=== PATIENT | female | born 1950 | race Caucasian/White ===

== ENCOUNTER 2024-01-20 10:53 | Outpatient (OUT) | payer MEDICARE, SELFPAY ==
--- NOTE | 2024-01-20 10:56 | MM_ITS ---
Patient Name: MICHELLE MELVIN MR#: [id number] : 1950 Exam Date: 01/20/2024 Ordering Doctor: DR ISAURA BRYANT M.D. RADIOLOGY REPORT PROCEDURE: MM TOMOSYNTHESIS SCREENING BI COMPARISON: MG MAMM SCREEN 3D [place] CAD, 01/18/2023. MG MAMM SCREEN 3D [place] CAD, 07/30/2021. MG MAMM SCREEN [place] W CAD, 06/12/2020. MG MAMM [place] SCRN W CAD DIG, 07/23/2013. INDICATIONS: screening Calculator Name NCI Breast Cancer Risk Assessment Tool 5 Year Breast Cancer Risk 1.90% Lifetime Breast Cancer Risk 4.80% Personal Breast Cancer No Personal Ovarian Cancer No Treatments None Family Cancers Aunt-maternal with breast cancer at age ~75; Mother with ovarian cancer at age 83; Father with prostate cancer at age ~75. LOCATION: [facility] BREAST COMPOSITION: Scattered areas fibroglandular density. FINDINGS: DIAGNOSTIC CATEGORY 1--NEGATIVE. RIGHT BREAST: No significant suspicious finding. No significant change has occurred. LEFT BREAST: No significant suspicious finding. No significant change has occurred. RECOMMENDATIONS: ROUTINE MAMMOGRAM AND CLINICAL EVALUATION IN 12 MONTHS. PLEASE NOTE: A NORMAL MAMMOGRAM DOES NOT EXCLUDE THE POSSIBILITY OF BREAST CANCER. A CLINICALLY SUSPICIOUS PALPABLE LUMP SHOULD BE BIOPSIED. Dictated by: Toni Covarrubias M.D. on 01/20/2024 at 15:19 Approved by: Toni Covarrubias M.D. on 01/20/2024 at 15:21
== END 2024-01-20 10:54 | disposition home or self-care (01) ==
LOC: MAMMO 10:54
PROVIDERS: PCP Family Medicine; Visit Provider Family Medicine
DX: Z12.31 Encounter for screening mammogram for malignant neoplasm of breast (principal); Z80.3 Family history of malignant neoplasm of breast; Z80.41 Family history of malignant neoplasm of ovary; Z80.42 Family history of malignant neoplasm of prostate
CPT/HCPCS: 77063; 77067

== ENCOUNTER 2024-06-30 19:51 | Emergency (ER) | payer MEDICARE, SELFPAY ==
[2024-06-30 20:05] VITALS: BP 186/88; PULSE 80; TEMP 37.2; O2SAT 93; BMI 35.2
--- OUTSIDE RECORDS SUMMARY | 2024-06-30 20:26 | XMS_ITS | CCD ---
Author Organization [facility] Care Team Providers Care Jig Builder Helper Name Role Phone Kamille Pichardo Unavailable MD Ivonne Bryant Primary Care Provider DIPIKA Pettit Attending Provider MANNY, DR DELAROSA Primary Care Unavailable MANNY, DR DELAROSA Consulting Unavailable MANNY, DR DELAROSA Attending Unavailable MANNY, DR DELAROSA Admitting Unavailable [place]THB[place]OUGH, DR LAZARA Wellington Consulting Unavailable Ann Pettit Unavailable MD Ivonne Bryant Primary Care Provider MD Naun Malhotra Attending Provider Naun Malhotra Unavailable MD Ivonne Godoy Primary Care Pr ovider Kalani Chester Attending Unavailable Kalani Chester Attending Unavailable Ivonne Godoy Primary Care Un available Naun Malhotra Admitting Unavailable Naun Malhotra Attending Unavailable Ann Pettit Admitting Unavailable Ann Pettit Attending Unavailable Ivonne Godoy Primary Care Un available Ivonne Godoy Primary Care Un available Naun Malhotra Admitting Unavailable Naun Malhotra Attending Unavailable IVONNE BRYANT Attending Unavailable CLARISSE FRAUSTO Attending Unavailable MARCIAL HERNANDEZ Referring Unavailable IVONNE BRYANT Primary Care Unavailable IVONNE BRYANT Referring Unavailable IVONNE BRYANT Primary Care Unavailable MARCIAL HERNANDEZ Attending Unavailable IVONNE BRYANT Referring Unavailable IVONNE BRYANT Primary Care Unavailable BRIDGETTE CAVANAUGH Attending Unavailable IVONNE BRYANT Referring Unavailable IVONNE BRYANT Primary Care Unavailable MELANIE HUANG Referring Unavailable IVONNE BRYANT Primary Care Unavailable BRIDGETTE CAVANAUGH Referring Unavailable IVONNE BRYANT Primary Care Unavailable Allergies Allergy Classification Reported Allergen(s) Allergy Type Date of Onset Reaction(s) Facility (10 sources) Bee/Wasp/Ant venom Propensity to adverse reactions swelling [facility] Other (15 sources) Clindamycin; Translations: [clindamycin] Drug Allergy 12-22-19 18 hives, Unknown (qualifier value) [facility] (1 source) Penicillins (Antibiotic) Propensity to adverse reactions rash [facility] Other (10 sources) Shellfish Propensity to adverse reactions anaphylaxis [facility] Other (1 source) Sulfonamides (Antibiotic) Propensity to adverse reactions hives [facility] Other (5 sources) Penicillin V Drug Allergy rash [facility] Other (5 sources) sulfaSALAzine Drug Allergy Unknown [facility] Other (1 source) bee venom Drug allergy (disorder) [facility] (1 source) Clindamycin Drug Allergy [facility] (4 sources) Penicillins; Translations: [PENICILLINS] Drug allergy (disorder) 04-05-20 13 [facility] (3 sources) Shellfish; Translations: [shellfish] Drug allergy (disorder) 04-05-20 13 Unknown (qualifier value) [facility] (1 source) Sulfonamides (Antibiotic) Drug allergy (disorder) 04-05-20 13 [facility] (6 sources) Ibuprofen; Translations: [ibuprofen] Drug Allergy hives, Weal (disorder) [facility] (6 sources) metroNIDAZOLE; Translations: [metronidazole] Drug Allergy hives, Eruption of skin (disorder) [facility] (6 sources) Penicillin; Translations: [penicillin] Drug Allergy rash, Unknown (qualifier value) [facility] (4 sources) Substance with sulfonamide structure and antibacterial mechanism of action (substance) Drug allergy Unknown [facility] Other (1 source) Clindamycin Drug Allergy 10-14-20 [facility] (1 source) Ibuprofen Drug Allergy 10-14-20 [facility] (1 source) metroNIDAZOLE Drug Allergy 10-14-20 [facility] (1 source) Penicillins Drug allergy (disorder) 10-14-20 [facility] (4 sources) Shellfish; Translations: [SHELLFISH DERIVED] Drug allergy (disorder) 12-22-19 [facility] (4 sources) Sulfonamides (Antibiotic); Translations: [SULFA (SULFONAMIDE ANTIBIOTICS)] Drug allergy (disorder) 12-22-19 [facility] (4 sources) bee venom protein (honey bee); Translations: [BEE VENOM PROTEIN (HONEY BEE)] Drug allergy (disorder) 12-22-19 [facility] Medications Current Medications Medication Drug Class(es) Dates Sig (Normalized) Sig (Original) ALPRAZolam 0.5 mg oral tablet (4 sources) Benzodiazepine Start: 12-07-2023 take 1 tablet by mouth three times daily as needed for anxiety Xanax 0.5 mg Tab 0.5 mg = 1 tab(s), Oral, TID, PRN for anxiety, Refills(s) 0 Start Date: 12/07/23 Status: Ordered Xanax Active Calcium (1 source) Phosphate Binder, Calcium take 1 tablet by mouth once daily at mealtime calcium carbonate 1500 mg oral tablet (9 sources) take 1 tablet by mouth every twenty-four hours Calcium 600 MG 1 tablet with meals Orally Once a day Active take 1 tablet by richard th every twenty-four hours Calcium 600 MG 1 tablet with meals Orally Once a day Active calcium d-glucarate 500 mg oral capsule (1 source) Start: 12-07-2023 take 1 mg by mouth twice daily calcium d-glucarate 500 mg oral capsule mg cap(s), Oral, BID, Refills(s) 0 Start Date: 12/07/23 Status: Ordered cholecalciferol 0.125 mg oral capsule (6 sources) Vitamin D Vitamin D3 125 M CG (5000 UT) as directed Orally Active Vitamin D3 125 M CG (5000 UT) as directed Orally Active Compression stockings, 30-40mmHg, thigh 30-40mmHg (9 sources) Start: 12-15-[address] ockings, 30-40mmHg, thigh 30-40mmHg externally daily as directed for 90 days Dec, Active Cranberry preparation (4 sources) Non-Standardized Food Allergenic Extract, Non-Standardized Plant Allergenic Extract Start: 12-07-2023 Azo cranberry Refill(s) 0 Start Date: 12/07/23 Status: Ordered Cranberry Active D-Mannose (1 source) Start: 12-07-2023 D-Mannose D-Ma nnose Start Date: 12/07/23 Status: Ordered estradiol 0.1 mg/ml vaginal cream (1 source) Estrogen Start: 12-07-2023 Estrace 0.1 mg /g Cream See Instructions, 42.5 gm, Refill(s) 3, apply pea size amount to urethra/inner vagina 3x/week x 1 month, then 2x/week for maintainence, [employer] [facility] Start Date: 12/07/23 Status: Ordered FLUoxetine (9 sources) Serotonin Reuptake Inhibitor Fluoxetine Active fluticasone furoate 0.05 MG/ACTUAT Dry Powder Inhaler (11 sources) Corticosteroid Start: 12-07-2023 fluticasone fu roate 50 mcg inhalation powder Inhalation, q24hr, Refills(s) 0 Start Date: 12/07/23 Status: Ordered take 1 spray(s) nasal route once daily Flonase 50 MCG/DOSE 1 spray in each nostril Nasally Once a day for 30 day(s) Active take 1 spray(s) nasal route once daily Flonase 50 MCG/DOSE 1 spray in each nostril Nasally Once a day for 30 day(s) Active lisinopril 10 mg oral tablet (11 sources) Angiotensin Converting Enzyme Inhibitor Start: 12-07-2023 take 1 mg by mouth once daily lisinopril 10 mg Tab mg tab(s), Oral, Daily, Refills(s) 0 Start Date: 12/07/23 Status: Ordered take 1 tablet by richard th every twenty-four hours Lisinopril 10 MG 1 tablet By Mouth Daily Active lutein / zeaxanthin (11 sources) Start: 12-07-2023 lutein-zeaxant hin Oral, Daily, Refill(s) 0 Start Date: 12/07/23 Status: Ordered Lutein-Zeaxanthi n 25-5 MG as directed Orally Active Lutein-Zeaxanthi n 25-5 MG as directed Orally Active magnesum (1 source) Start: 12-07-2023 magnesum magne sum Start Date: 12/07/23 Status: Ordered Multivitamin preparation (10 sources) Multivitamin Act wali Omeprazole (11 sources) Proton Pump Inhibitor Start: 12-07-2023 omeprazole Oral, Daily, Refills(s) 0 Start Date: 12/07/23 Status: Ordered take 1 tablet by richard th every twenty-four hours Omeprazole 20 MG 1 tablet Orally Once a day for 14 day(s) Active oxybutynin (7 sources) Cholinergic Muscarinic Antagonist Start: 12-07-2023 oxybutynin Refills(s ) 0 Start Date: 12/07/23 Status: Ordered take 1 tablet by richard th every twelve hours Oxybutynin Chloride 5 MG 1 tablet Orally Twice a day Not-Taking Prosac (1 source) Start: 12-07-2023 Prosac Prosac Start Date: 12/07/23 Status: Ordered red yeast rice (2 sources) Start: 12-07-2023 take 1 mg by mouth o nce daily red yeast rice mg, Oral, Daily, Refills(s) 0 Start Date: 12/07/23 Status: Ordered Red Yeast Rice 6 00 MG Orally Active Red Yeast Rice 600 MG (9 sources) Red Yeast Rice 6 00 MG Orally Active Vitamin D3 (1 source) Start: 12-07-2023 Vitamin D3 Refills(s) 0 Start Date: 12/07/23 Status: Ordered Vitamin D3 125 MCG (5000 UT) (4 sources) Vitamin D3 125 M CG (5000 UT) as directed Orally Active Zinc (4 sources) take 1 tablet by mouth once daily Zinc 50 MG 1 tablet Orally Once a day Active zinc gluconate 50 mg oral tablet (6 sources) take 1 tablet by mouth every twenty-four hours Zinc 50 MG 1 tablet Orally Once a day Active Completed/Discontinued Medications Medication Drug Class(es) Dates Sig (Normalized) Sig (Original) [id number] 0.3 ml EPINEPHrine 1 mg/ml auto-injector (6 sources) alpha-Adrenergic Agonist, beta-Adrenergic Agonist, Catecholamine Start: 06-25-2013 EpiPen 2-Damián 0.3 MG/0.3ML as directed Injection as needed for . PRN Jun, Not-Taking methylPREDNISolone (8 sources) Corticosteroid Start: 06-25-2013 Depo-Medrol 40 mg Jun, 1 mL nitrofurantoin, macrocrystals 25 mg / nitrofurantoin, monohydrate 75 mg oral capsule (4 sources) Nitrofuran Antibacterial Start: 01-09-2023 take 1 capsule by mouth every twelve hours Macrobid 100 MG 1 cap(s) Orally 2 times a day for 5 day(s) Jan, Not-Taking/PRN phenazopyridine hydrochloride 200 mg oral tablet (4 sources) Start: 01-09-2023 take 1 tablet by mouth every eight hours Pyridium 200 MG 1 tablet after meals Orally Three times a day for 2 day(s) Jan, Not-Taking/PRN triamcinolone acetonide 40 mg/ml injectable suspension (4 sources) Corticosteroid Start: 11-26-2022 Kenalog-40 Nov, 40 mg Problems Active Problems Problem Classification Problem Date Documented Date Episodic/Chronic Esophageal disorders (1 source) Gastroesophageal reflux disease without esophagitis 11-30-2023 Chronic Essential hypertension (1 source) Hypertensive disorder 11-30-2023 Chronic Genitourinary symptoms and ill-defined conditions (1 source) Incontinence 12-07-2023 Chronic Inflammatory diseases of female pelvic organs (1 source) Vaginitis Onset: 05-29-2024 Episodic Menopausal disorders (2 sources) Atrophic vaginitis; Translations: [Postmenopausal atrophic vaginitis] Onset: 12-07-2023 Chronic Other aftercare (1 source) Encounter for other specified aftercare; Translations: [Encounter for other specified aftercare] Onset: 06-27-2024 Episodic Other ear and sense organ disorders (1 source) Hearing loss 11-30-2023 Chronic Other ear and sense organ disorders (1 source) Bilateral tinnitus 11-30-2023 Episodic Other female genital disorders (2 sources) Other specified noninflammatory disorders of vagina; Translations: [Other specified noninflammatory disorders of vagina] Onset: 05-29-2024 Episodic Other inflammatory condition of skin (1 source) Pruritus vulvae; Translations: [Pruritus vulvae] Onset: 06-19-2024 Episodic Other injuries and conditions due to external causes (1 source) Other injury of unspecified body region, initial encounter; Translations: [Other injury of unspecified body region, initial encounter] Onset: 06-27-2024 Episodic Other nervous system disorders (10 sources) Chronic pain; Translations: [Other chronic pain] Chronic Other nervous system disorders (2 sources) Other chronic pain Chronic Other nutritional; endocrine; and metabolic disorders (1 source) Morbid obesity 11-30-2023 Chronic Other screening for suspected conditions (not mental disorders or infectious disease) (4 sources) Encounter for screening mammogram for malignant neoplasm of breast; Translations: [ENC SCR MAMMO MALIG NEOPLASM BREAST] Onset: 01-18-2023 Episodic Residual codes; unclassified (1 source) Sleep apnea 11-30-2023 Chronic Residual codes; unclassified (1 source) Family history of malignant neoplasm of breast; Translations: [FAMILY HX MALIG NEOPLASM OF BREAST] Onset: 01-24-2023 Episodic Residual codes; unclassified (1 source) Family history of malignant neoplasm of ovary; Translations: [FAM HX MALIGNANT NEOPLASM OVARY] Onset: 01-24-2023 Episodic Residual codes; unclassified (1 source) Family history of malignant neoplasm of other organs or systems; Translations: [FAM HX MALIG NEOPLASM OTH ORGN/SYS] Onset: 01-24-2023 Episodic Spondylosis; intervertebral disc disorders; other back problems (20 sources) Degeneration of lumbar intervertebral disc; Translations: [Other intervertebral disc degeneration, lumbar region] Onset: 11-17-2023 Chronic Unclassified (1 source) Vulvar itching Onset: 06-19-2024 Urinary tract infections (3 sources) Urinary tract infection, site not specified; Translations: [Urinary tract infectious disease] Onset: 12-07-2023 Episodic Varicose veins of lower extremity (12 sources) Varicose veins of lower extremity; Translations: [Varicose veins of bilateral lower extremities with pain] Onset: 09-08-2021 Resolved: 12-15-2021 Episodic Past or Other Problems Problem Classification Problem Date Documented Da te Episodic/Chronic Genitourinary symptoms and ill-defined conditions (6 sources) Hematuria, unspecified; Translations: [Nocturia] Onset: 01-09-2023 Episodic Other circulatory disease (1 source) Nevus, non-neoplastic Onset: 09-08-2021 Resolved: 09-08-2021 Episodic Results Test Name Value Interpretation Reference Range Facility SUPERFICIAL WOUND CULTUREon 06-27-2024 Bacteria identified Aer cx Nom (Wound) SPECIMEN NOTES BIOPSY SITE GRAM STAIN 0 to 1 WHITE BLOOD CELLS/LPF 0 SQUAMOUS EPITHELIAL CELLS/LPF FEW GRAM POSITIVE COCCI RARE GRAM NEGATIVE RODS CULTURE RESULTS CULTURE IN PROGRESS Abnormal [facility] Comment on above: Performed By: #### 6 32-0 #### [facility] ([id number]) [address] [place] [address], [address] [place] [address] VAGINITIS PANEL PCRon 2023 VAGINITIS PANEL PCR BACT. VAGINOSIS DNA Not detected (qualifier value) Qualitative results are reported based on detection and quantitation of targeted organism markers which include: Lactobacillus spp. (L. crispatus and L. jensenii), Gardnerella vaginalis, Atopobium vaginae, Bacterial Vaginosis Associated Bacteria-2 (BVAB-2) and Megasphaera-1 ROMANA SPECIES DNA Not detected (qualifier value) Romana species not detected include: C. albicans, C. tropicalis, C. parapsilosis or C. dubliniensis ROMANA KRUSEI DNA Not detected (qualifier value) No Romana krusei detected ROMANA GLABRATA DNA Not detected (qualifier value) No Romana glabrata detected TRICHOMONAS VAG DNA Not detected (qualifier value) No Trichomonas vaginalis detected NOTE BD MAX Vaginal Panel has not been evaluated for patients under 18 years old. Results for these patients should be reviewed and assessed in accordance with clinical presentation to determine patient diagnosis. Normal [facility] Comment on above: Performed By: #### V PPCR #### [facility] ([id number]) [address] [place] [address], [address] [place] [address] Physician Referralon 024 Physician Referral [phone] [id number] Normal [facility] Ambulatory Visit Summaryon 0 12-07-2023 Ambulatory Visit Summary EMMA PALM :1950 Visit Date:12/07/2023 Ambulatory Visit Instructions Your Diagnosis Recurrent UTI Vaginal atrophy Mixed incontinence Nocturia Your Care Team Attending Physician - Kalani Chester MD. This Is Your Medications List estradiol topical (Estrace 0.1 mg/g Cream) Contact prescribing physician if questions or concerns Non-Formulary Medication (D-Mannose) Non-Formulary Medication (Prosac) Non-Formulary Medication (magnesum) alprazolam (Xanax 0.5 mg Tab) calcium saccharate (calcium d-glucarate 500 mg oral capsule) cholecalciferol (Vitamin D3) cranberry (Azo cranberry) fluticasone (fluticasone furoate 50 mcg inhalation powder) lisinopril (lisinopril 10 mg Tab) lutein-zeaxanthin omeprazole oxybutynin red yeast rice [Image Removed: STOP]Stop taking these medications lisinopril Procedures Performed Appendectomy, Tubal ligation. What to do next Scheduled Follow-Up Appointments Tuesday 10:00 AM EDT With: Kalani Chester MD Where: [facility] Patient Educationon 12-07-19 Patient Education Obstetrics and Gynecology Kegel Exercises Kegel exercises can help strengthen your pelvic floor muscles. The pelvic floor is a group of muscles that support your rectum, small intestine, and bladder. In females, pelvic floor muscles also help support the uterus. These muscles help you control the flow of urine and stool (feces). Kegel exercises are painless and simple. They do not require any equipment. Your provider may suggest Kegel exercises to: ? Improve bladder and bowel control. ? Improve sexual response. ? Improve weak pelvic floor muscles after surgery to remove the uterus (hysterectomy) or after , in females. ? Improve weak pelvic floor muscles after prostate gland removal or surgery, in males. Kegel exercises involve squeezing your pelvic floor muscles. These are the same muscles you squeeze when you try to stop the flow of urine or keep from passing gas. The exercises can be done while sitting, standing, or lying down, but it is best to vary your position. Ask your health care provider which exercises are safe for you. Do exercises exactly as told by your health care provider and adjust them as directed. Do not begin these exercises until told by your health care provider. Exercises How to do Kegel exercises: 1. Squeeze your pelvic floor muscles tight. You should feel a tight lift in your rectal area. If you are a female, you should also feel a tightness in your vaginal area. Keep your stomach, buttocks, and legs relaxed. 2. Hold the muscles tight for up to 10 seconds. 3. Breathe normally. 4. Relax your muscles for up to 10 seconds. 5. Repeat as told by your health care provider. Repeat this exercise daily as told by your health care provider. Continue to do this exercise for at least 4?6 weeks, or for as long as told by your health care provider. You may be referred to a physical therapist who can help you learn more about how to do Kegel exercises. Depending on your condition, your health care provider may recommend: ? Varying how long you squeeze your muscles. ? Doing several sets of exercises every day. ? Doing exercises for several weeks. ? Making Kegel exercises a part of your regular exercise routine. This information is not intended to replace advice given to you by your health care provider. Make sure you discuss any questions you have with your health care provider. Document Revised: 03/04/2022 Document Reviewed: 03/04/2022 hybris Patient Education ? 2022 [employer]. Normal [facility] Urology Office/Clinic Noteon 12-07-2023 Urology Office/Clinic Note Chief Complaint Section Leader Screen Printing for hematuria HPI Staff Section Leader Screen Printing referral for UTI w/ hematuria and mixed stress and urge incontinence by Minerva Azeveod Taking OTC AZO and D-Mannose CMP done 09/10/23BUN(16) CREAT(0.72) Urine Culture done 07/09/23 Urine Culture done 09/05/23 When she gets UTI her biggest sx is her hands and knuckles hurt PVR 32 Dysuria: denies Incomplete bladder emptying: not sure if she is Hematuria: denies visible blood Frequency: every couple hours Urgency: sometimes Nocturia: every 2-3 hours, sometimes has to change the pad once nightly Stream: denies hesitation, normal stream Leaking: denies Post void dripping: denies Wearing pads/ Depends: _pad wore all the time, changed at the end of the day Urge incontinence: _yes Stress incontinence: yes Incontinence without Sensory Awareness: _denies Abdominal pain: _denies Flank pain: denies Sexual complaints: denies History of Present Illness Tests reviewed: reviewed UA and External Records including CBC, CMP, multiple urine cultures I have reviewed the previous health record information and history for this patient from External Provider. I have reviewed and verified the staff HPI to be accurate for this encounter. There have been no associated fever, chills, flank pain, or blood in the urine. Review of Systems PHQ Score Initial Depression Screen Score: 0 SCORE ROS - Provider Constitutional: denies weight loss, denies hot flashes. Eyes: denies eye problems. Gastrointestinal: denies nausea, denies vomiting. Cardiovascular: denies chest pain or angina. Integumentary: no dryness Musculoskeletal: denies musculoskeletal symptoms. ENMT: denies otolaryngeal symptoms. Respiratory: no shortness of breath. Heme/Lymph: denies easy bleeding tendency, denies easy bruising tendency. Psychiatric: no confusion, no anxiety. Genitourinary: See HPI. Physical Exam General Appearance: alert , no acute distress, well nourished, well developed female. Head: normocephalic . Eyes: normal orbit and globe. ENMT: normal examination of external ears. Chest: symmetric chest rise, respirations non labored . Cardiovascular: regular rate and rhythm. Abdomen: soft, non distended, no tenderness Genitourinary: bladder nonpalpable, no flank tenderness. Skin: warm, dry, no bruising. Psychiatric: cooperative, affect appropriate for age, normal judgement, euthymic mood. Assessment/Plan 73 year old female here for new patient evaluation of recurrent UTIs. Endorses additional issues below 1. Recurrent UTI (N39.0: Urinary tract infection, site not specified) CMP done 09/10/23 - BUN(16) CREA(0.72) U.Cx 07/28/22 - E.Coli 07/09/23 - K.Pneumoniae 09/05/23 - P.Mirabilis When she gets UTI her biggest sx is her hands and knuckles hurt PVR 32 ml Starting taking OTC AZO and D-Mannose. Pt states that she has not had any infections since. 10% of women over the age of 60 will have recurrent urinary tract infection - 2 or more urinary tract infection in 6 months or 3 or more per year. We discussed multiple etiologies including constipation, voiding dysfunction, incomplete bladder emptying, fecal incontinence, uncontrolled diabetes and vaginal atrophy. I explained the lack of estrogen secondary to menopause causes changes in the vaginal epithelium that can predispose to lower urinary tract symptoms, vaginal discomfort, urinary incontinence, dyspareunia, and recurrent urinary tract infections. Because of these changes to the vaginal tissues the lactobacilli (good bacteria) fail to thrive. The pH of the vagina rises making it easier for harmful bacteria to colonize the vagina. Recommendations discussed: -Start estrace cream. Patient was told to apply a pea-sized amount 3 times weekly at night for 4 weeks and then 2 times per week thereafter, may take up to 3 months for full effect. This has been shown to reduce frequency of UTIs by up to 70%. She was reassured that there is minimal systemic absorption with application of vaginal estrogen cream and most of the benefits will be to the local tissues. She should stop medication and notify us if she feels breast tenderness or has vaginal spotting. - Continue Cranberry extract pills and D-mannose 2 g daily Consider in the future: - Lactobacillus probiotic gel caps orally or vaginally daily x 10 days followed by weekly for 10 weeks as this has been shown to reduce the risk of UTI by half. Patient can consider a weekly booster as well if successful. - Hiprex (methenamine hippurate) or daily antibiotic prophylaxis may be added to the regimen should the patient continue to have urinary tract infections on her current regimen. Urine pH should be 5.5 or lower, may need to start Vitamin C 1-2g QD to QID to acidify urine. - If she continues to demonstrate positive urine cultures with positive urinalysis, a complete workup, including a stone protocol CT and cystoscopy would be reasonable next step. 2. Vaginal atrophy (N95.2: Postmenopa (more content not included)... [facility] [facility] Comment on above: Result Comment: Elec tronically Signed By: Kalani Chester MD\.br\Date and Time Signed: 12/07/23 15:16 EST\.br\Electronically Co-Signed By: Gris Edmondson\.br\Date and Time Co-Signed: 12/07/23 11:36 EST MR lumbar spine wo conon MR lumbar spine wo con [facility] [place] [address] [place] [address] MRI Report Signed Patient: Emma Palm MR#: [id number] : 1950 Acct:[id number] Age/Sex: 73 / F ADM Date: 11/17/23 Loc: MR Room: Type: [facility] Attending Dr: Naun Malhotra MD Copies to: Naun Malhotra MD Ordering Provider: Naun Malhotra MD Date of Service: 11/17/23 MR/MR lumbar spine wo con: [id number] MRI LUMBAR SPINE WITHOUT CONTRAST COMPARISON: 05/13/2020 and plain films 09/19/2023 CLINICAL DATA: Low back pain. History of injections 2 months ago. No injury. Multiecho imaging in the axial and sagittal plane was performed without contrast. There is slight levoscoliotic curvature. There is minor chronic wedge deformity involving the superior endplate of L4. No acute compression fractures or marrow edema are seen. There is still slight anterolisthesis of L4 and L5. There are some degenerative endplate signal changes and spurring. The conus medullaris is normal in caliber, position and signal intensity. No paraspinal soft tissue abnormalities are present. At T12-L1, there is minimal left parasagittal disc bulging with subtle thecal sac effacement. The neural foramen are patent. At L1-2, there is moderate narrowing of the disc space. There is minor annular disc bulging toward the neural foramen. Minor thecal sac effacement is present. There is no significant foraminal stenosis. At L2-3, there is mild disc space narrowing. There is mild annular disc bulging, greater toward the neural foramen and slightly asymmetric extending laterally on the left. There is minimal thecal site effacement. Mild inferior foraminal encroachment is present, greater on the right. At L3-4, the disc is within normal limits for height. Annular disc bulging is present through the neural foramen. There is mild facet and ligamentous hypertrophy. There is continued mild to moderate thecal sac effacement. There is mild to moderate bilateral foraminal impingement, left slightly worse than right. At L4-5, the disc is within normal limits for height. There is minor annular disc bulging. There is prominent bilateral facet disease, left slightly worse than right. There is mild thickening of ligamentum flavum which is also greater on the left. Moderate thecal sac effacement is again seen. There is also moderate narrowing of both neural foramen. At the lumbosacral junction, minor annular disc bulging is present along with some endplate spurring, asymmetric extending laterally on the left. There is mild facet disease. No prominent thecal sac effacement is visualized. There is mild to moderate left foraminal encroachment. The right neural foramen is patent. MR/MR lumbar spine wo con IMPRESSION: CONTINUE DISCOVERTEBRAL DEGENERATIVE CHANGES WITH ASSOCIATED STENOSIS, GREATEST AT L4-5 WHERE THERE IS PROMINENT FACET DISEASE. Impression dictated by: Corrine Lawrence M.D.11/17/2023 7:38 PM Dictation Location: [place] [address] Transcribed By: [facility] 11/17/231937 Dictated By: Corrine Lawrence MD 11/17/231925 Signed By: 11/17/231937 Normal [facility] XR lumbar spine AP/LAT/FLX/E XTon 09-19-2023 XR lumbar spine AP/LAT/FLX/EXT [facility] [place] [address] XRay Report Signed Patient: Emma Palm MR#: [id number] : 1950 Acct:[id number] Age/Sex: 73 / F ADM Date: 09/19/23 Loc: XD Room: Type: [facility] Attending Dr: Naun Malhotra MD Copies to: Naun Malhotra MD Ordering Provider: Naun Malhotra MD Date of Service: 09/19/23 XR/XR lumbar spine AP/LAT/FLX/EXT: Lumbosacral spondylosis LUMBAR SPINE - 4 views CLINICAL HISTORY: Low back pain for 8 years. COMPARISON: Lumbar spine 08/06/2020 FINDINGS: Bones are grossly demineralized. Vertebral body heights appear maintained. Diffuse endplate and facet joint degenerative changes with moderate disc space narrowing as well as 4 mm of anterolisthesis of L4 and L5 and approximately 4 mm retrolisthesis of L2 on L3 without pathological motion on flexion or extension views. SI joints demonstrate degenerative change. XR/XR lumbar spine AP/LAT/FLX/EXT IMPRESSION: OVERALL, NO SIGNIFICANT CHANGE IN LUMBAR SPINE FINDINGS COMPARED TO THE 2019 STUDY. MULTILEVEL DEGENERATIVE DISC DISEASE IS SEEN. Impression dictated by: Richard Abreu Jr., D.O.09/19/2023 8:38 PM Dictation Location: [place] [address] Transcribed By: [facility] 09/19/232037 Dictated By: Richard Abreu Jr DO 09/19/232036 Signed By: 09/19/232037 Normal [facility] MG MAMM SCREEN 3D HOSEA CADon 01-18-2023 MG MAMM SCREEN 3D HOSEA CAD Patient: EMMA PALM Exam Date: 01/18/2023 : 1950 Gender:F Ordering : DR IVONNE BRYANT M.D. Admission #: [id number] Family : Order #: [id number] CLICK HERE TO VIEW EXAM RADIOLOGY REPORT PROCEDURE: MAMMOGRAM SCREENING 3D BILATERAL CAD COMPARISON: MG MAMM SCREEN HOSEA W CAD, 06/12/2020. MG MAMM SCREEN 3D HOSEA CAD, 07/30/2021. INDICATIONS: Screening mammography Calculator Name NCI Breast Cancer Risk Assessment Tool 5 Year Breast Cancer Risk 1.80% Lifetime Breast Cancer Risk 5.10% Personal Breast Cancer No Personal Ovarian Cancer No Treatments None Family Cancers Aunt-maternal with breast cancer at age 75; Mother with ovarian cancer at age 83; Father with prostate cancer at age 75. LOCATION: [facility] BREAST COMPOSITION: Scattered areas fibroglandular density. FINDINGS: DIAGNOSTIC CATEGORY 1--NEGATIVE. NO CHANGE FROM COMPARISON ASSESSMENT. Scattered benign-appearing calcifications are present. Scattered benign-appearing lymph nodes are present. RIGHT BREAST: No significant suspicious finding. LEFT BREAST: No significant suspicious finding. RECOMMENDATIONS: ROUTINE MAMMOGRAM AND CLINICAL EVALUATION IN 12 MONTHS. PLEASE NOTE: A NORMAL MAMMOGRAM DOES NOT EXCLUDE THE POSSIBILITY OF BREAST CANCER. A CLINICALLY SUSPICIOUS PALPABLE LUMP SHOULD BE BIOPSIED. Dictated by: Lazara Burgess MD on 01/19/2023 at 06:56 Approved by: Lazara Burgess MD on 01/19/2023 at 06:58 Normal [facility] Urinalysis - AUTOMATEDon Appearance (U) cloudy [employer] Other Bilirubin Ql (U) Negative [employer] Other Color (U) yellow [facility] Other Glucose Ql (U) Negative [employer] Other Hemoglobin Ql (U) [employer] Other Ketones Ql (U) Negative [employer] Other Leukocyte esterase Test strip Ql (U) [employer] Other Nitrite Ql (U) Negative [employer] Other pH (U) 5.5 [pH] [facility] Other Protein Ql (U) Negative [employer] Other Specific gravity (U) [Rel density] 1.030 [facility] Other Urobilinogen (U) [Mass/Vol] 0.2 mg/dL [facility] Other Urinalysis - AUTOMATED [facility] Other Urine Cultureon 01-09-2023 Bacteria identified Cx Nom (U) ORGANISM: Proteus mirabilis (O:PROMIR) [place] Count >100,000 Aerobic TEMO Charge (NMIC56) ---- SUSCEPTIBILITY --- ORGANISM: O:PROMIR ANTIBIOTIC INTERPRETATION TEMO Amikacin S <16 Amoxacillin/K Clavulanate S <8 Ampicillin S <8 Ampicillin/Sulbactam S <4 Aztreonam S <4 Cefazolin S <2 Cefepime S <2 Ceftazidime S <1 Ceftazidime/Avibactam S <4 Ceftolozane/Tazobacta m S <2 Ceftriaxone S <1 Cefuroxime S <4 Ciprofloxacin S <0.25 Ertapenem S <0.5 Gentamicin S <2 Levofloxacin S <0.5 Meropenem S <1 Meropenem/Vaborbactam S <2 Piperacillin/Tazobact am S <8 Tobramycin S <2 Trimethoprim/Sulfamet hoxazole S <0.5 S = SUSCEPTIBLE I = INTERMEDIATE R = RESISTANT BLANK = DATA NOT AVAILABLE, OR DRUG NOT ADVISABLE OR TESTED R* = RESISTANCE DUE TO EXTENDED SPECTRUM BETA-LACTAMASES ESBL = EXTENDED SPECTRUM BETA-LACTAMASE TFG = THYMIDINE-DEPENDENT STRAIN RADHA = BETA-LACTAMASE POSITIVE IB = INDUCIBLE BETA-LACTAMASE. APPEARS IN PLACE OF 'S' WITH SPECIES KNOWN TO POSSESS INDUCIBLE BETA-LACTAMASES. POTENTIALLY THEY MAY BECOME RESISTANT TO ALL B-LACTAM DRUGS. PERFORMED BY: [facility] [address] [place] [address] PATHOLOGIST AGRICULTURE SPECIALIST ABY LARRY M.D. Normal [facility] Comment on above: Performed By: #### C UU #### [facility] [address] [place] [address] Urine Culture >100,000 [facility] Other Urine Culture <16 Susceptible [employer] Other Urine Culture <8/4 Susceptible [employer] Other Urine Culture <8 Susceptible [employer] Other Urine Culture <4 Susceptible [employer] Other Urine Culture <2 Susceptible [employer] Other Urine Culture <1 Susceptible [employer] Other Urine Culture <0.25 Susceptible [employer] Other Urine Culture <0.5 Susceptible [employer] Other Urine Culture <0.5/9.5 Susceptible [employer] Other Vital Signs Date Time Vital Sign Value Performing Clinician Facility 12-07-2023 10:31-0500 Blood Pressure Location Kalani Chester [facility] 10-14-2023 11:15-0500 Body height 170.18 cm Naunjose Malhotra Other [facility] Other 10-14-2023 11:15-0500 Diastolic blood pressure 90 mm[Hg] Naun Malhotra Other [facility] Other 10-14-2023 11:15-0500 SaO2% (BldA) [Mass fraction] 98 % Naunjose Malhotra Other [facility] Other 10-14-2023 11:15-0500 Systolic blood pressure 150 mm[Hg] Naun Malhotra Other [facility] Other 09-19-2023 16:30-0500 Body height 170.18 cm Naunjose Malhotra Other [facility] Other 09-19-2023 16:30-0500 Body mass index (BMI) [Ratio] 35.55 kg/m2 Naunjose Malhotra Other [facility] Other 09-19-2023 16:30-0500 Body weight 102.97 kg Naun Malhotra Other [facility] Other 09-19-2023 16:30-0500 Diastolic blood pressure 70 mm[Hg] Naun Roscoe Other [facility] Other 09-19-2023 16:30-0500 Systolic blood pressure 124 mm[Hg] Naun Roscoe Other [facility] Other 01-09-2023 11:55-0500 Body height 170.18 cm Ann Pettit Other [facility] Other 01-09-2023 11:55-0500 Body mass index (BMI) [Ratio] 33.83 kg/m2 Ann Palomomond Other [facility] Other 01-09-2023 11:55-0500 Body temperature 97.6 [degF] Ann Pettit Other [facility] Other 01-09-2023 11:55-0500 Body weight 97.98 kg Ann Palomomond Other [facility] Other 01-09-2023 11:55-0500 Diastolic blood pressure 81 mm[Hg] Ann Pettit Other [facility] Other 01-09-2023 11:55-0500 Respiratory rate 18 /min Ann Pettit Other [facility] Other 01-09-2023 11:55-0500 SaO2% (BldA) [Mass fraction] 96 % Ann Pettit Other [facility] Other 01-09-2023 11:55-0500 Systolic blood pressure 158 mm[Hg] Ann Pettit Other [facility] Other 12-15-2021 11:00-0500 Body height 170.18 cm Kamille Pichardo Other [facility] Other 12-15-2021 11:00-0500 Body mass index (BMI) [Ratio] 35.24 kg/m2 Kamille Pichardo Other [facility] Other 12-15-2021 11:00-0500 Body temperature 97.8 [degF] Kamille Pichardo Other [facility] Other 12-15-2021 11:00-0500 Body weight 102.06 kg Kamille Pichardo Other [facility] Other 12-15-2021 11:00-0500 Diastolic blood pressure 82 mm[Hg] Kamille Pichardo Other [facility] Other 12-15-2021 11:00-0500 SaO2% (BldA) [Mass fraction] 94 % Kamille Pichardo Other [facility] Other 12-15-2021 11:00-0500 Systolic blood pressure 178 mm[Hg] Kamille Pichardo Other [facility] Other 09-08-2021 12:00-0400 Body height 170.18 cm Kamille Pichardo Other [facility] Other 09-08-2021 12:00-0400 Body mass index (BMI) [Ratio] 35.08 kg/m2 Kamille Pichardo Other [facility] Other 09-08-2021 12:00-0400 Body weight 101.61 kg Kamille Pichardo Other [facility] Other 09-08-2021 12:00-0400 Diastolic blood pressure 64 mm[Hg] Kamille Sylvestero Other [facility] Other 09-08-2021 12:00-0400 Systolic blood pressure 140 mm[Hg] Kamille Sylvestero Other [facility] Other Encounters Encounter Date Encounter Type Care Provider Facility Start: 06-27-2024 End: 06-27-2024 ambulatory [facility] Start: 06-27-2024 End: 06-27-2024 ambulatory [facility] Start: 06-19-2024 End: 06-19-2024 ambulatory [facility] Start: 06-19-2024 End: 06-19-2024 ambulatory [facility] Start: 05-29-2024 End: 05-29-2024 ambulatory MELANIE Bhatti [facility] Start: 05-29-2024 End: 05-29-2024 [facility] Start: 05-16-2024 ambulatory Kalani Chester [facility] Start: 03-20-2024 End: 03-20-2024 ambulatory CLARISSE ALEXISAKI Not Available Start: 01-27-2024 End: 01-28-2024 ambulatory IVONNE BRYANT Not Available Start: 01-05-2024 End: 01-05-2024 ambulatory IVONNE BRYANT Not Available Start: 12-07-2023 End: 12-08-2023 ambulatory Kalani Chester Facility:[facility] Start: 12-07-2023 End: 12-07-2023 Patient encounter procedure Kalani Chester [facility] Start: 11-18-2023 ambulatory Kalani Chester Facility:[facility] Start: 11-17-2023 End: 11-17-2023 ambulatory Ivonne Bryant Facility:[facility] Start: 11-17-2023 End: 11-17-2023 ambulatory MD Ivonne Bryant Work Phone: [facility] Work Phone: Start: 11-17-2023 End: 11-17-2023 Patient encounter procedure MD Ivonne Bryant Work Phone: [facility] [place] Work Phone: Start: 10-14-2023 End: 10-14-2023 ambulatory Naun Malhotra Other [facility] [facility] Other Start: 10-14-2023 Office outpatient vi sit 25 minutes Naunjose Malhotra [facility] Start: 10-06-2023 (PROC) PROCEDURE Naun Malhotra [facility] Start: 10-06-2023 End: 10-06-2023 ambulatory Naun Malhotra Other [facility] Other Start: 09-19-2023 End: 09-19-2023 ambulatory Ivonne Bryant Facility:[facility] Start: 09-19-2023 End: 09-19-2023 Patient encounter procedure MD Ivonne Bryant Work Phone: [facility]XRay [place] Work Phone: Start: 09-19-2023 End: 09-19-2023 ambulatory MD Ivonne Bryant Work Phone: [facility] Work Phone: Start: 09-19-2023 Office outpatient vi sit 25 minutes Naun Malhotra [facility] Start: 09-06-2023 ambulatory Kalani Lue Facility:[facility] Start: 01-18-2023 End: 01-19-[address] IVONNE BRYANT Facility:[facility] Start: 01-09-2023 End: 01-09-2023 ambulatory Ann Pettit Facility:[facility] Start: 01-09-2023 Office outpatient vi sit 25 minutes Annerasmo Pettit [facility] Start: 01-09-2023 End: 01-09-2023 ambulatory MD Ivonne Bryant Work Phone: [facility] Work Phone: Start: 01-09-2023 End: 01-09-2023 Departed Referred MD Ivonne Bryant Work Phone: [facility] [place] Work Phone: Start: 04-02-2022 (Sclerother) Sclerotherapy Kamille Ruttino [facility] Start: 04-02-2022 End: 04-02-2022 ambulatory Kamille Ruttino Other [facility] Other Start: 04-01-2022 End: 04-01-2022 ambulatory Kamille Ruttino Other [facility] Other Start: 04-01-2022 Telephone encounter Kamille Ruttino [facility] Start: 02-19-2022 (Sclerother) Sclerotherapy Kamille Ruttino [facility] Start: 02-19-2022 End: 02-19-2022 ambulatory Kamille Ruttino Other [facility] Other Start: 02-18-2022 End: 02-18-2022 ambulatory Kamille Ruttino Other [facility] Other Start: 02-18-2022 Telephone encounter Kamille Ruttino [facility] Start: 12-15-2021 End: 12-15-2021 ambulatory Kamille Ruttino Other [facility] Other Start: 12-15-2021 Office outpatient vi sit 15 minutes Kamille Ruttino [facility] Start: 09-08-2021 End: 09-08-2021 ambulatory Kamille Ruttino Other [facility] Other Start: 09-08-2021 Office outpatient vi sit 15 minutes Kamille Ruttino [facility] Procedures Date Procedure Procedure Detail Performing Clinician Start: 06-27-2024 Follow-up visit Follow-up AMY DURANLEIGHA Start: 11-17-2023 MR lumbar spine wo con MD Ivonne Bryant Work Phone: Start: 09-19-2023 X-ray of lumbar spin e, four views MD Ivonne Bryant Work Phone: Start: 01-09-2023 Piperacillin/tazobactam Ann Hodan Other Appendectomy Kalani Lue Ligation of fallopian tube K athy Lue Plan of Treatment Date Care Activity Detail Author Start: 01-09-2023 Bacteria identified in Urine by Culture Urine Culture [facility] Immunizations Immunization Date Immunization Notes Care Provider Fa esperanza 09-09-2023 influenza virus vacc ine, unspecified formulation Kalani Lue [facility] 09-09-2023 pneumococcal 20-nestor nt conjugate vaccine Kalani Lue [facility] 09-14-2022 influenza virus vacc ine, unspecified formulation Kalani Lue [facility] 09-14-2022 zoster vaccine recombinant Kalani Lue [facility] 12-16-2021 zoster vaccine recombinant Kalani Lue [facility] 10-13-2021 SARS-CoV-2 (COVID-19 ) mRNA BNT-162b2 vax Kalani Lue [facility] 08-19-2021 influenza virus vacc ine, unspecified formulation Kalani Lue [facility] 02-10-2021 SARS-CoV-2 (COVID-19 ) mRNA BNT-162b2 vax Kalani Lue [facility] 01-19-2021 SARS-CoV-2 (COVID-19 ) mRNA BNT-162b2 vax Kalani Lue [facility] 08-13-2020 influenza virus vacc ine, unspecified formulation Kalani Lue [facility] 08-11-2019 influenza virus vacc ine, unspecified formulation Kalani Lue [facility] 09-25-2018 influenza virus vacc ine, unspecified formulation Kalani Lue [facility] 12-01-2017 pneumococcal polysaccharide vaccine, 23 valent Kalani Lue [facility] 08-30-2017 tetanus toxoid, redu brendan diphtheria toxoid, and acellular pertussis vaccine, adsorbed Kamille Frairematyvandana Other [facility] 08-26-2017 influenza virus vacc ine, unspecified formulation Kalani Lue [facility] 11-30-2016 pneumococcal conjuga te vaccine, 13 valent Kalani Lue [facility] 08-11-2016 influenza virus vacc ine, unspecified formulation Kalani Lue [facility] 09-26-2015 influenza virus vacc ine, unspecified formulation Kalani Lue [facility] 08-30-2014 influenza virus vacc ine, unspecified formulation Kalani Lue [facility] 08-10-2013 influenza virus vacc ine, unspecified formulation Kalani Lue [facility] 11-02-2012 influenza virus vacc ine, unspecified formulation Kalani Lue [facility] 06-04-2011 tetanus toxoid, redu brendan diphtheria toxoid, and acellular pertussis vaccine, adsorbed Kalani Lue [facility] 10-09-2010 influenza, whole Kalani Lue [facility] Payers Date Payer Category Payer Medicare [id number] 2023 Unknown [id number] 2023 Self-pay [id number] 2023 Unknown [id number] 2. [id number] 2016 Medicare [id number] 1959 Medicare [id number] 2.1 [id number] 1959 Unknown [id number] 1950 Unknown [id number] 2.16.84 0.1.630206.3.579.2.593 1950 Unknown [id number] 2.16.8 40.1.669101.3.579.2.727 1950 Unknown [id number] 2.16.8 40.1.276826.3.579.2.727 1950 Unknown [id number] 2.16.84 0.1.510276.3.579.2.1259 1950 Unknown [id number] 2.16.84 0.1.959407.3.579.2.1259 1950 Unknown [id number] 2.16.84 0.1.808607.3.579.2.1259 1950 Unknown [id number] 2.16.8 40.1.346012.3.579.2.1286 1950 Unknown [id number] 2.16.8 40.1.702851.3.579.2.1286 1950 Unknown [id number] 2.16.8 40.1.725219.3.579.2.1286 1950 Unknown [id number] 2.16.8 40.1.380037.3.579.2.1286 1950 Unknown [id number] 2.16.8 40.1.006370.3.579.2.1286 1950 Unknown [id number] 2.16.8 40.1.028570.3.579.2.1286 Unknown [id number] 2.16.8 40.1.354693.3.579.2.531 Unknown [id number] 2.16.8 40.1.131498.3.579.2.531 Unknown [id number] 2.16.8 40.1.980762.3.579.2.531 Social History Date Type Detail Facility Unknown if ever smoked [facility] Other Sex Assigned At [facility] Start: 1950 Sex Assigned At Female [facility] Start: 12-07-2023 Tobacco smoking status Never s moked tobacco (finding) [facility] Functional Status Date Assessment Result Facility 12-07-2023 Functional Status N/A [facility] Clinical Notes 09-08-2021 to 12-07-2023 Note Date & Type Note Facility 12-07-2023 Hospital Discharg e instructions Patient Education 12/07/2023 11:35:19 Kegel Exercises Kegel Exercises Kegel exercises can help strengthen your pelvic floor muscles. The pelvic floor is a group of muscles that support your rectum, small intestine, and bladder. In females, pelvic floor muscles also help support the uterus. These muscles help you control the flow of urine and stool (feces). Kegel exercises are painless and simple. They do not require any equipment. Your provider may suggest Kegel exercises to: Improve bladder and bowel control. Improve sexual response. Improve weak pelvic floor muscles after surgery to remove the uterus (hysterectomy) or after , in females. Improve weak pelvic floor muscles after prostate gland removal or surgery, in males. Kegel exercises involve squeezing your pelvic floor muscles. These are the same muscles you squeeze when you try to stop the flow of urine or keep from passing gas. The exercises can be done while sitting, standing, or lying down, but it is best to vary your position. Ask your health care provider which exercises are safe for you. Do exercises exactly as told by your health care provider and adjust them as directed. Do not begin these exercises until told by your health care provider. Exercises How to do Kegel exercises: 1.Squeeze your pelvic floor muscles tight. You should feel a tight lift in your rectal area. If you are a female, you should also feel a tightness in your vaginal area. Keep your stomach, buttocks, and legs relaxed. 2.Hold the muscles tight for up to 10 seconds. 3.Breathe normally. 4.Relax your muscles for up to 10 seconds. 5.Repeat as told by your health care provider. Repeat this exercise daily as told by your health care provider. Continue to do this exercise for at least 4 6 weeks, or for as long as told by your health care provider. You may be referred to a physical therapist who can help you learn more about how to do Kegel exercises. Depending on your condition, your health care provider may recommend: Varying how long you squeeze your muscles. Doing several sets of exercises every day. Doing exercises for several weeks. Making Kegel exercises a part of your regular exercise routine. This information is not intended to replace advice given to you by your health care provider. Make sure you discuss any questions you have with your health care provider. Document Revised: 03/04/2022 Document Reviewed: 03/04/2022 [employer]bris Patient Education 2022 [employer]. Follow Up Care 09/01/2023 16:21:46 With:Kalani Chester MD, URL, URO Address: When:Within 6 Month(s) [facility] 10-14-2023 Evaluation note Encounter Date Diagnosis Assessment Notes Oct, Sacroiliitis (ICD-10 - M46.1) 73 year old female here for follow up status post bilateral sacroiliac joint injection under fluoroscopic guidance. Patient reports 80-90% pain relief as well as improved walking, standing and daily functions following procedure. She denies any back pain today. Overall, she appears to be doing well. I recommend she continue activities as tolerated. She is counseled against any excessive bending or twisting. She is advised to call the office if her pain returns. Oct, Lumbosacral spondylosis (ICD-10 - M47.817) I will order updated imaging of the lumbar spine to further evaluate her pain. Oct, Chronic pain (ICD-10 - G89.29) Follow up as needed. [facility] Other 11-13-2023 Evaluation note* Encounter Date Diagnosis Assessment Notes Treatment Notes Treatment Clinical Notes Sep, Sacroiliitis (ICD-10 - M46.1) 73 year old female here for follow up to discuss chronic pain. She voices complaints of low back pain. She was last seen in this office 2 years ago, where she received sacroiliac joint injections. She feels this pain is that same pain she experienced then. Anatomy of spine discussed in detail with patient in regards to patients condition. Patient is a candidate for a bilateral sacroiliac joint injection under fluoroscopic guidance as this provided 90% pain relief and increased function for over a year. Risks and benefits of procedure explained to patient; patient verbalizes understanding. Sep, Lumbosacral spondylosis (ICD-10 - M47.817) I will order updated imaging of the lumbar spine to further evaluate her pain. Sep, Chronic pain (ICD-10 - G89.29) Follow up after procedure Sep, Lumbar degenerative disc disease (ICD-10 - M51.36) [facility] Other 03-05-2023 Evaluation note* Encounter Date Diagnosis Assessment Notes Treatment Notes Treatment Clinical Notes Jan, Urinary tract infection, site not specified (ICD-10 - N39.0) Urinary tract infection (UTI) home care material was printed, Urinary tract infection (UTI) home care material was printed Drink plenty fluids, get plenty of rest. Take the Macrobid and Pyridium as prescribed until gone. 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 She has no reflux of bilateral GSV. We discussed recommendation for sclerotherapy of bilateral lower extremities to treat her superficial varicosities and telangiectasia. Should continue wearing her graded compression stockings, elevating her legs when she can, and continue good skin care moisturizer therapy bilaterally. We discussed the procedure for sclerotherapy at length. All of her questions were addressed. She would like to proceed with treatment in the near future. We will get this scheduled for her. She verbalizes understanding, agrees with plan, and denies any questions. 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 All of her questions were addressed. We discussed the extent of her varicosities and reports of previous procedure for varicose vein treatment. We discussed the fact that there is no cure for varicose veins however there is treatment available for relief of symptoms. We will proceed with obtaining bilateral full functional venous duplex and have her back to discuss the results as well as any treatment recommendations based on the studies. Patient verbalizes understanding of all discussion here today, agrees with plan at this time, and denies any questions. [facility] Other Evaluation + Plan note Future Appointments Appointment Date:05/16/2024 10:00:00 AM Scheduled Provider:Kalani Chester MD Location:[facility] Appointment Type:URO Office Visit [facility] evaluation noteNo InformationNort REPUCOM Other Evaluation noteNo assessment information available [facility] Work Phone: [facility] general Narrative - Reported* Type Description Date Medical History Overactive bladder Medical History GERD (gastroesophageal reflux di sease) Medical History hypertension Medical History VV 'S Surgical History tonsillectomy Surgical History C section Surgical History appendectomy Surgical History knee surgery Surgical History Dental Surgery Surgical History breast biopsy 1989 Hospitalization History see above surgical histo ry [facility] Other Hospital course Narrative No data available for this section [facility] progress note No data available for this section [facility] Advance Directives No Advanced Directives Records Found Advance Directive Response Recorded Date/ Time Advance Directives No September 6:12pm Summary Purpose Family History No Family History Records Found No data available for this section No Family History Records FoundNo Family History Records FoundNo Family History Records FoundNo Family History Records FoundNo Family History Records FoundNo Family History Records Found Chief Complaint and Reason for Visit Chief Complaint M47.817 Chief Complaint M47.817 M47.817 Additional Source Comments REASON FOR VISIT (unrecogniz ed section and content) VARICOSE VEINSVASC 4 MONTH F OLLOW UP; FF VENOUS DUPLEX BOTH LEGS 9ASCLERO BOTH LEGSClinicalClinicalSCLEROTHERAPY [place] LEGSpossible UTIINCREASE LOW BACK PAINHOSEA SACROILIAC JOINT INJ/ELFOLLOW UP AFTER [place] SI Care Teams (unrecognized sec tion and content) Team Status: Inactive Member Role Status Dates Ivonne Bryant MD Primary Care Provider Active AMIE GossC Attending Provider Active Team Status: Active Member Role Status Dates Ivonne Bryant MD Primary Care Provider Active Team Status: Inactive Member Role Status Dates Ivonne Bryant MD Primary Care Provider Active Naun Malhotra MD Attending Provider Active Team Status: Active Member Role Status Dates Ivonne Bryant MD Primary Care Provide r Active Team Status: Inactive Member Role Status Dates Ivonne Bryant MD Primary Care Provide r Active Naun Malhotra MD Attending Provider Active Goals (unrecognized section and content) Goals may be documented in a n alternate section INFORMATION SOURCE (unrecogn ized section and content) DATE CREATED AUTHOR 01/25/[address] [facility] DATE CREATED AUTHOR AUTHOR'S ORGANIZ ATION 12/14/2023 [facility] DATE CREATED AUTHOR AUTHOR'S ORGANIZ ATION 12/16/2023 [facility] DATE CREATED AUTHOR AUTHOR'S ORGANIZ ATION 03/22/2024 [facility] DATE CREATED AUTHOR AUTHOR'S ORGANIZ ATION 06/21/2024 [facility] DATE CREATED AUTHOR AUTHOR'S ORGANIZ ATION 06/29/2024 [facility] DATE CREATED AUTHOR AUTHOR'S ORGANIZ ATION 06/29/[address] [facility] FOR RECORDS PERTAINING TO PATIENTS WHO ARE OR HAVE BEEN ENROLLED IN A CHEMICAL DEPENDENCY/SUBSTANCEABUSE PROGRAM, SOME INFORMATION MAY BE OMITTED. This clinical summary was aggregated from multiple sources. Caution should be exercised in using it in the provision of clinical care. This summary normalizes information from multiple sources, and as a consequence, information in this document may materially change the coding, format and clinical context of patient data. In addition, data may be omitted in some cases. CLINICAL DECISIONS SHOULD BE BASED ON THE PRIMARY CLINICAL RECORDS. [employer] provides no warranty or guarantee of the accuracy or completeness of information in this document.
--- NOTE | 2024-06-30 21:12 | CT_ITS ---
The [address] [address] Patient Name: MICHELLE MELVIN MRN: [id number] date: 1950 Sex: F Assigned Patient Location: ER Current Patient Location: Accession/Order Number: [id number] Exam Date: 06/30/2024 22:20 Report Date: 07/01/2024 01:12 At the request of: EDI COWART Procedure: CT angio abdomen pelvis EXAM: CT angio abdomen pelvis HISTORY: GI bleeding, lower abd pain COMPARISON: None. TECHNIQUE: Omnipaque 350, 100 mL given IV. Following contrast, contiguous thin section axial scans obtained from lung bases through ischial tuberosities during the arterial phase of imaging. Coronal and sagittal reformatted images obtained. On separate workstation, coronal and sagittal MIP images obtained. Also on a separate workstation, 3-D reconstructions of the abdominal aorta and iliac arteries in the pelvis obtained and reviewed. Dose reduction techniques were achieved by using automated exposure control and/or adjustment of mA and/or kV according to patient size and/or use of iterative reconstruction technique. FINDINGS: Included lung bases are clear. Cardiac chambers are normal. Normal GE junction stomach. No incidental PE seen on pulmonary arteries at lung bases. Normal caliber of the descending thoracic aorta, abdominal aorta, iliac arteries and branch vessels including mesenteric arteries and renal arteries which are widely patent. No dissection. There is some minor calcification at the takeoff of celiac axis and SMA as well as right renal artery and left renal artery but no evidence of any significant stenosis of these vessels. Arterial structures otherwise are unremarkable. There is long segment acute wall thickening and inflammatory changes involving the descending large bowel beginning at splenic flexure extending distally to junction with sigmoid colon. Long segment acute descending colitis. No obvious diverticulosis or evidence of diverticulitis. There is some diverticulosis but mostly in the sigmoid region. Nonspecific colitis could be due to infectious causes versus inflammatory bowel disease. Doubt ischemia given normal appearance of the vessels. Correlate with clinical history and labs. No evidence of active extravasation of contrast into lumen of large or small bowel. Remainder of large bowel is otherwise unremarkable. Small bowel loops are normal in appearance and caliber. Normal GE junction and stomach. During the arterial phase of imaging, the liver, spleen, pancreas, and adrenal glands are normal. There is a calcification at lower pole calyx left kidney measuring almost 8 mm x 5 mm. No other calculi in the left kidney. No left ureteral calculi or hydronephrosis. Left kidney otherwise normal. Right kidney with tiny cortical cysts lower pole too small to characterize otherwise normal. No right renal calculus or hydronephrosis or other abnormality. No right ureteral calculus. IVC is patent. Normal appearing mesenteric and retroperitoneal structures. No mass or adenopathy in the abdomen or pelvis. No ascites or loculated fluid. No free air. Urinary bladder is unremarkable. Pelvic structures reproductive organs are otherwise negative. The appendix is not clearly identified and there are no secondary findings to suggest acute appendicitis. Normal osseous structures and joints for age. CT/CT angio abdomen pelvis IMPRESSION: 1. Acute long segment descending colitis. Nonspecific. Correlate for infectious etiology versus inflammatory bowel disease. Correlate with lactic acidosis with ischemic colitis. 2. No evidence of active contrast extravasation into the bowel loops or GI tract on this study. 3. Colonic diverticulosis but no diverticulitis. 4. Mild scattered calcific plaque at takeoff of mesenteric arteries and renal arteries as discussed. No evidence of significant stenosis. The descending thoracic and abdominal aorta and iliac arteries are otherwise within normal limits with no dissection or aneurysm. 5. Large nonobstructing calcification at lower pole left renal calyx. Electronically authenticated by: PATY VALLE Date: 07/01/2024 01:12
[2024-06-30 21:47] LABS: Basophils Absolute Auto 0.1 10^3/uL (0.0-0.1); Basophils Percent Auto 0.5 % (0.2-2.0); Eosinophils Absolute Auto 0.1 10^3/uL (0.0-0.7); Eosinophils Percent Auto 1.1 % (0.9-7.0); Hematocrit 43.8 % (36.0-48.0); Hemoglobin 14.2 g/dL (12.0-16.0); Immature Granulocytes Abs Auto 0.03 10^3/uL (0.00-0.03); Immature Granulocytes Pct Auto 0.3 % (0.0-0.5); Lymphocytes Absolute Auto 2.1 10^3/uL (1.2-3.8); Lymphocytes Percent Auto 17.4 % (20.5-60.0); Mean Corpuscular HGB Conc 32.4 g/dL (29.9-35.2); Mean Corpuscular Volume 86.4 fL (81.0-99.0); Mean Platelet Volume 11.4 fL (9.5-13.5); Monocytes Absolute Auto 1.1 10^3/uL (0.3-0.8); Monocytes Percent Auto 9.3 % (1.7-12.0); Neutrophils Absolute Auto 8.5 10^3/uL (1.4-6.5); Neutrophils Percent Auto 71.4 % (43.0-75.0); Platelet Count 258 10^3/uL (150-450); Red Blood Count 5.07 10^6/uL (4.20-5.40); Red Cell Distribution Width 14.2 % (11.0-15.0); White Blood Count 11.8 10^3/uL (4.0-11.0)
[2024-06-30 22:04] LABS: INR 1.02; Partial Thromboplastin Time 27.5 sec (22.3-36.2); Prothrombin Time 10.8 sec (9.0-11.6)
[2024-06-30 22:06] LABS: Lactate/Lactic Acid 0.6 mmol/L (0.4-2.0)
[2024-06-30 22:15] LABS: Alanine Aminotransferase 35 U/L (14-59); Albumin Globulin Ratio 0.8; Albumin Level 3.3 g/dL (3.4-5.0); Alkaline Phosphatase 109 U/L (46-116); Anion Gap 11.2; Aspartate Amino Transferase 53 U/L (15-37); BUN Creatinine Ratio 23.3; Bilirubin Total 0.9 mg/dL (0.2-1.0); Calcium 9.1 mg/dL (8.5-10.1); Carbon Dioxide 30.6 mmol/L (21.0-32.0); Chloride 98 mmol/L (98-107); Estimated GFR (African America >60 (>=60); Estimated GFR (Non-African Ame >60 (>=60); Globulin 4.1 g/dL; Glucose 97 mg/dL (74-106); Potassium 4.8 mmol/L (3.5-5.1); Sodium 135 mmol/L (136-145); Total Protein 7.4 g/dL (6.4-8.2)
[2024-06-30] MEDS: 0.9 % SODIUM CHLORIDE 1,000 ML 999 ML IV (22:36)
--- NOTE | 2024-06-30 23:01 | ED_ITS ---
HPI HPI - General Adult General Chief complaint: Abdominal Pain Stated complaint: Blood in Stool Time Seen by Provider: 06/30/24 20:12 Source: patient and family Mode of arrival: ambulance Limitations: no limitations History of Present Illness HPI narrative: 73-year-old female to the emergency department with chief complaint of blood in the stool. Patient reports that yesterday she had an episode where she had some lower abdominal cramping associated with blood in the stool. She reports she has had several other small bloody bowel movements today. Is bright red blood with some small clots. The episodes are always associated with lower abdominal cramping. She denies any fever, sweats, chills. She reports some mild nausea with the cramping but no vomiting. Denies any chest pain or shortness of breath. He has a history of hemorrhoids. Related Data Home Medications ?Medication ?Instructions ?Recorded ?Confirmed alprazolam 0.5 mg tablet 0.5 mg PO DAILY 06/30/24 06/30/24 epinephrine 0.3 mg/0.3 mL 0.3 ml IM PRN anaphylaxis 06/30/24 injection, auto-injector fluconazole 150 mg tablet 150 mg PO .hs 06/30/24 06/30/24 fluoxetine 20 mg capsule 20 mg PO DAILY 06/30/24 06/30/24 lisinopril 10 mg tablet 10 mg PO DAILY 06/30/24 06/30/24 omeprazole 20 mg capsule,delayed 20 mg PO DAILY 06/30/24 06/30/24 release Allergies Allergy/AdvReac Type Severity Reaction Status Date / Time bee venom protein (honey bee) Allergy Intermediate Anaphylaxis Verified 06/30/24 20:02 clindamycin Allergy Intermediate Rash Verified 06/30/24 20:02 metronidazole [From Flagyl] Allergy Intermediate Rash Verified 06/30/24 20:02 Penicillins Allergy Intermediate itch Verified 06/30/24 20:02 shellfish derived Allergy Intermediate Anaphylaxis Verified 06/30/24 20:02 Sulfa (Sulfonamide Allergy Intermediate Rash Verified 06/30/24 20:02 Antibiotics) Opioid HPI Opioid Management Most Recent Opioid Data: No Data to Display Review of Systems ROS Status of ROS 10 or more systems reviewed and unremark able except as noted in history and below Exam Narrative Exam Narrative: VITALS: I have reviewed the triage vital signs. GENERAL: Well developed, well appearing adult in no acute distress. NEURO: Alert and oriented. Moves all extremities. Face is symmetric and expressive. EYES: PERRL. No scleral icterus or conjunctival injection. No discharge. HENT: Normocephalic, atraumatic. Hearing is grossly intact. Nares grossly patent and without discharge. Mucous membranes moist. NECK: No JVD. Patient moves neck without restriction. CARDIO: Rhythm regular. Normal rate. No murmur, rub, or gallop. Pulses equal bilaterally in the upper and lower extremity. No lower extremity edema. PULM: Lungs clear to auscultation in all [place]. No wheezes, rales, or rhonchi. No conversational dyspnea. No splinting, stridor, or accessory muscle use. GI/: Abdomen is soft and non-tender. Normoactive bowel sounds. EXTREMITIES: Symmetric muscle bulk. No joint swelling. No clubbing, cyanosis, or deformity. SKIN: Warm and dry. Normal turgor. No rash or lesions appreciated. PSYCH: Mood, affect, and interaction is appropriate to the setting. Constitutional Vital Signs, click to edit/add: Last Vital Signs Temp 98.9 F 06/30/24 20:05 Pulse 80 06/30/24 20:05 Resp 16 06/30/24 20:05 BP 186/88 H 06/30/24 20:05 Pulse Ox 93 L 06/30/24 20:05 O2 Del Method Room Air 06/30/24 20:05 Course Vital Signs Vital signs: Vital Signs Temperature 98.9 F 06/30/24 20:05 Pulse Rate 80 06/30/24 20:05 Respiratory Rate 16 06/30/24 20:05 Blood Pressure 186/88 H 06/30/24 20:05 Pulse Oximetry 93 L 06/30/24 20:05 Oxygen Delivery Method Room Air 06/30/24 20:05 Temperature 98.9 F 06/30/24 20:05 Pulse Rate 80 06/30/24 20:05 Respiratory Rate 16 06/30/24 20:05 Blood Pressure 186/88 H 06/30/24 20:05 Pulse Oximetry 93 L 06/30/24 20:05 Oxygen Delivery Method Room Air 06/30/24 20:05 Medical Decision Making MDM Narrative Medical decision making narrative: Well-appearing 73-year-old female to the emergency department with chief complaint of cramping lower abdominal pain and bright red blood per rectum. Vital stable, the patient is afebrile. Mild tenderness on abdominal exam. Will proceed with CTA for localization of GI bleed if there is active bleeding. Also evaluation for the potential causes such as colitis or diverticulitis. Patient agrees with this plan. Basic labs. Mild leukocytosis. Normal hemoglobin. Chemistry is unremarkable. Lactate normal. CTA shows a long segment colitis. No significant stenosis. Ischemic versus inflammatory versus infectious. I discussed the case with our on-call surgeon Dr. Lennon. He recommended transfer this patient for GI evaluation/colonoscopy. Patient has a preference for [facility]. A call was placed to [facility]. I discussed the case with Dr. Pierce who accepted the patient to his service. Patient transferred for further workup and treatment of her long segment colitis. Medical Records Medical records reviewed: Yes I reviewed the patient's medical records Lab Data Lab results reviewed: Yes I reviewed the patient's lab results Labs: Lab Results 06/30/24 Range/Units 21:35 WBC 11.8 H (4.0-11.0) 10^3/uL RBC 5.07 (4.20-5.40) 10^6/uL Hgb 14.2 (12.0-16.0) g/dL Hct 43.8 (36.0-48.0) % MCV 86.4 (81.0-99.0) fL MCH 28.0 (26.7-34.0) pg MCHC 32.4 (29.9-35.2) g/dL RDW 14.2 (11.0-15.0) % Plt Count 258 (150-450) 10^3/uL MPV 11.4 (9.5-13.5) fL Neut % (Auto) 71.4 (43.0-75.0) % Lymph % (Auto) 17.4 L (20.5-60.0) % [place] % (Auto) 9.3 (1.7-12.0) % Eos % (Auto) 1.1 (0.9-7.0) % Baso % (Auto) 0.5 (0.2-2.0) % Neut # (Auto) 8.5 H (1.4-6.5) 10^3/uL Lymph # (Auto) 2.1 (1.2-3.8) 10^3/uL [place] # (Auto) 1.1 H (0.3-0.8) 10^3/uL Eos # (Auto) 0.1 (0.0-0.7) 10^3/uL Baso # (Auto) 0.1 (0.0-0.1) 10^3/uL Abs Immat Gran (auto) 0.03 (0.00-0.03) 10^3/uL Imm/Tot Granulo (auto) 0.3 (0.0-0.5) % PT 10.8 (9.0-11.6) sec INR 1.02 APTT 27.5 (22.3-36.2) sec Sodium 135 L (136-145) mmol/L Potassium 4.8 (3.5-5.1) mmol/L Chloride 98 (98-107) mmol/L Carbon Dioxide 30.6 (21.0-32.0) mmol/L Anion Gap 11.2 BUN 17.0 (7.0-18.0) mg/dL Creatinine 0.73 (0.55-1.02) mg/dL Est GFR ( Amer) >60 (>=60) Est GFR (Non-Af Amer) >60 (>=60) BUN/Creatinine Ratio 23.3 Glucose 97 (74-106) mg/dL Lactate 0.6 (0.4-2.0) mmol/L Calcium 9.1 (8.5-10.1) mg/dL Total Bilirubin 0.9 (0.2-1.0) mg/dL AST 53 H (15-37) U/L ALT 35 (14-59) U/L Alkaline Phosphatase 109 (46-116) U/L Total Protein 7.4 (6.4-8.2) g/dL Albumin 3.3 L (3.4-5.0) g/dL Globulin 4.1 g/dL Albumin/Globulin Ratio 0.8 Imaging Data CTA abdomen pelvis: Radiologist's impression: ITS Impressions Abdomen/Pelvis CTA 06/30/24 21:12 IMPRESSION: 1. Acute long segment descending colitis. Nonspecific. Correlate for infectious etiology versus inflammatory bowel disease. Correlate with lactic acidosis with ischemic colitis. 2. No evidence of active contrast extravasation into the bowel loops or GI tract on this study. 3. Colonic diverticulosis but no diverticulitis. 4. Mild scattered calcific plaque at takeoff of mesenteric arteries and renal arteries as discussed. No evidence of significant stenosis. The descending thoracic and abdominal aorta and iliac arteries are otherwise within normal limits with no dissection or aneurysm. 5. Large nonobstructing calcification at lower pole left renal calyx. Electronically authenticated by: PATY VALLE Date: 07/01/2024 01:12 Critical Care Time Critical Care Time Critical Care Time: Yes Total Critical Care Time: 31 Attestation: Critical Care Procedure Note Authorized and Performed by: Manuel Rosado DO Total critical care time: 31 min Due to a high probability of clinically significant, life threatening deterioration, the patient required my highest level of preparedness to intervene emergently and I personally spent this critical care time directly and personally managing the patient. This critical care time included obtaining a history; examining the patient; pulse oximetry; ordering and review of studies; arranging urgent treatment with development of a management plan; evaluation of patient's response to treatment; frequent reassessment; and, discussions with other providers. This critical care time was performed to assess and manage the high probability of imminent, life-threatening deterioration that could result in multi-organ failure. It was exclusive of separately billable procedures and treating other patients and teaching time. Please see MDM section and the rest of the note for further information on patient assessment and treatment. Discharge Plan Discharge Chief Complaint: Abdominal Pain Clinical Impression: Colitis, Gastrointestinal hemorrhage Patient Disposition: [facility] Time of Disposition Decision: 01:58 Discharge Location: [facility] Condition: Good Mode of Transportation: EMS Prescriptions / Home Meds: No Action alprazolam 0.5 mg tablet 0.5 mg PO DAILY epinephrine 0.3 mg/0.3 mL auto-injector 0.3 ml IM PRN (Reason: anaphylaxis) fluconazole 150 mg tablet 150 mg PO .hs fluoxetine 20 mg capsule 20 mg PO DAILY lisinopril 10 mg tablet 10 mg PO DAILY omeprazole 20 mg capsule,delayed release(DR/EC) 20 mg PO DAILY Print Language: Greenlandic Referrals: ISAURA BRYANT [Primary Care Provider] - 1 week
[2024-07-01] MEDS: DICYCLOMINE HCL 20 MG/2 ML VIAL IM (01:58)
[2024-07-01 02:14] VITALS: BP 152/93
[2024-07-01 06:07] VITALS: BP 159/98; PULSE 89; O2SAT 96
== END 2024-07-01 06:20 | disposition short-term general hospital (02) ==
PROVIDERS: Emergency Provider Student in an Organized Health Care Education/Training Program; PCP Family Medicine
DX: K52.9 Noninfective gastroenteritis and colitis, unspecified (principal); R10.30 Lower abdominal pain, unspecified; K92.1 Melena
CPT/HCPCS: 36415; 74174; 80053; 83605; 85025; 85610; 85730; 96360; 96372; 99285; J0500; Q9967

== ENCOUNTER 2025-01-30 10:34 | Outpatient (OUT) | payer MEDICARE, SELFPAY ==
--- NOTE | 2025-01-30 10:36 | MM_ITS ---
Patient Name: MICHELLE MELVIN MR#: [id number] : 1950 Exam Date: 01/30/2025 Ordering Doctor: DR ISAURA BRYANT M.D. RADIOLOGY REPORT PROCEDURE: MM TOMOSYNTHESIS SCREENING BI COMPARISON: MM TOMOSYNTHESIS SCREENING BI, 01/20/2024. MG MAMM SCREEN 3D [place] CAD, 01/18/2023. MG MAMM SCREEN 3D [place] CAD, 07/30/2021. MG MAMM [place] SCRN W CAD DIG, 07/23/2013. INDICATIONS: Screening Calculator Name NCI Breast Cancer Risk Assessment Tool 5 Year Breast Cancer Risk 1.90% Lifetime Breast Cancer Risk 4.60% Personal Breast Cancer No Personal Ovarian Cancer No Treatments None Family Cancers Aunt-maternal with breast cancer at age ~75; Mother with ovarian cancer at age 83; Father with prostate cancer at age ~75. LOCATION: [facility] BREAST COMPOSITION: FINDINGS: RIGHT BREAST: No significant suspicious finding. LEFT BREAST: No significant suspicious finding. RECOMMENDATIONS: PLEASE NOTE: A NORMAL MAMMOGRAM DOES NOT EXCLUDE THE POSSIBILITY OF BREAST CANCER. A CLINICALLY SUSPICIOUS PALPABLE LUMP SHOULD BE BIOPSIED. Dictated by: Nitesh Melvin DO on 01/31/2025 at 08:16 Approved by: Nitesh Melvin DO on 01/31/2025 at 08:21
== END 2025-01-30 10:35 | disposition home or self-care (01) ==
LOC: MAMMO 10:34
PROVIDERS: PCP Family Medicine; Visit Provider Family Medicine
DX: Z12.31 Encounter for screening mammogram for malignant neoplasm of breast (principal); Z80.3 Family history of malignant neoplasm of breast; Z80.41 Family history of malignant neoplasm of ovary; Z80.42 Family history of malignant neoplasm of prostate
CPT/HCPCS: 77063; 77067